=== PATIENT | female | born 1970 | race African-American/Black ===

== ENCOUNTER 2022-01-01 12:21 | Emergency (ER) | payer SELFPAY ==
[~2022-01-01] VITALS: Ht 162.6 cm; Wt 79.4 kg
[2022-01-01 13:44] VITALS: BP 171/70
== END 2022-01-01 16:46 | disposition home or self-care (01) ==
LOC: ER 12:21
DX: M70.42 Prepatellar bursitis, left knee (principal); M70.41 Prepatellar bursitis, right knee
CPT/HCPCS: 73562